=== PATIENT | female | born 1980 | race Caucasian/White ===

== ENCOUNTER 2019-01-15 08:48 | Emergency (ER) | payer SELFPAY ==
[~2019-01-15] VITALS: Ht 170.2 cm; Wt 64.0 kg
--- NOTE | 2019-01-15 08:59 | NUR ---
PT ALERT AND ORIENTED ENTERED ER WITH C/C OF GLF MULTIPLE TIMES ACCORDING TO PT AROUND 0200 LAST NIGHT AFTER TAKING DRUGS. PT ACCOMPANIED BY FRIEND. WILL CONTIUNE TO MONITOR
--- NOTE | 2019-01-15 09:14 | NUR ---
WOUND CARE BEING ATTENDED TO PT UNABLE TO GIVE URINE PRESENTLY CT CALLED FOR SCAN ORDER PT SMALL 2CM SCAB ON FORE HEAD AND LEFT SIDE OF LIP SWOLLEN BACK PF HEAD HAS QUARTER SIZE HEMATOMA.
--- NOTE | 2019-01-15 09:37 | NUR ---
PT TAKEN TO CT SCAN
[2019-01-15] MEDS ORDERED: HYDROCODONE/APAP 10/325MG 1 EA TABLET PO ONE (10:00)
[2019-01-15] MEDS ORDERED: HYDROCODONE/APAP 10/325MG 1 EA TABLET ONE (10:05)
[2019-01-15 10:45] VITALS: BP 138/88
== END 2019-01-15 10:46 | disposition home or self-care (01) ==
LOC: ER 08:53
DX: S02.2XXA Fracture of nasal bones, initial encounter for closed fracture (principal); S00.83XA Contusion of other part of head, initial encounter; W18.39XA Other fall on same level, initial encounter; Y93.89 Activity, other specified; Y92.89 Other specified places as the place of occurrence of the external cause; Y99.8 Other external cause status
CPT/HCPCS: 70450; 70486; 72125; 73560; 99284; A6403